=== PATIENT | female | born 1960 | race Caucasian/White ===

== ENCOUNTER 2016-05-11 20:01 | Emergency (ER) | payer OTHER ==
[~2016-05-11] VITALS: Ht 162.6 cm; Wt 77.0 kg
[~2016-05-11 20:01] MED LIST: ASPI81 PO; GEMF600T PO; IMDU30TA PO; LIPI80TA16 PO; METO50TA PO; NIAC500T5 PO; TICA90 PO
[2016-05-11 20:04] VITALS: BP 161/100; PULSE 97; RESP 15; TEMP 98; O2SAT 97
[2016-05-11 22:54] VITALS: BP 186/103; PULSE 84; RESP 16; O2SAT 98
[2016-05-11] MEDS ORDERED: GEMF600T PO (22:57)
[2016-05-11] MEDS ORDERED: AMLO5TAB2 PO (22:57)
[2016-05-11] MEDS ORDERED: CLOP75TA PO (22:57)
[2016-05-11] MEDS ORDERED: LOSA50TA PO (22:57)
[2016-05-11] MEDS ORDERED: ISOS30TA3 PO (22:57)
[2016-05-11] MEDS ORDERED: ATOR1TAB18 PO (22:57)
[2016-05-11] MEDS ORDERED: ASPI81CH37 CHEW (22:57)
[2016-05-11] MEDS ORDERED: SODIUM CHLORID 0.9% 500 ML INJ 500 ML IV ONE (23:15)
[2016-05-11] MEDS ORDERED: PANTOPRAZOLE INJ 80 MG in SODIUM CHLORIDE 0.9% INJ 35 ML IV ONE (23:15)
[2016-05-11] MEDS ORDERED: PANTOPRAZOLE INJ 80 MG in SODIUM CHLORIDE 0.9% INJ 100 ML IV SCH (23:15)
[2016-05-11] MEDS ORDERED: SODIUM CHLORIDE 0.9% FLUSH 5 ML FLUSH IVF PRN (23:15)
[2016-05-11] MEDS ORDERED: ONDANSETRON HCL 4 MG/2 ML VIAL IVP ONE (23:15)
[2016-05-11] MEDS ORDERED: MORPHINE SULFATE 4 MG/ML INJ IV PUSH ONE (23:15)
[2016-05-12 00:57] LABS: AUTOMATED NEUTROPHIL # 6.1 TH/MM3 (1.8-7.7); BASOPHIL % 0.5 % (0.0-2.0); EOSINOPHIL # 0.1 TH/MM3 (0-0.4); EOSINOPHIL % 1.5 % (0.0-4.0); HEMATOCRIT 41.2 % (35.0-46.0); HEMO FLAGS DIFF FINAL; LYMPH % 21.6 % (9.0-44.0); LYMPHOCYTE # 1.9 TH/MM3 (1.0-4.8); MEAN CELL VOLUME 89.3 FL (80.0-100.0); MEAN CORPUSCULAR HEMOGLOBIN 31.8 PG (27.0-34.0); MEAN CORPUSCULAR HGB CONC 35.6 % (32.0-36.0); MONO % 6.6 % (0.0-8.0); NEUT % 69.8 % (16.0-70.0); PLATELET COUNT 283 TH/MM3 (150-450); RED BLOOD COUNT 4.61 MIL/MM3 (4.00-5.30); RED CELL DISTRIBUTION WIDTH 13.1 % (11.6-17.2); WHITE BLOOD COUNT 8.7 TH/MM3 (4.0-11.0)
[2016-05-12 01:11] LABS: APTT (PATIENT) 28.2 SEC (24.3-30.1); INTERNATIONAL NORMALIZED RATIO 0.9 RATIO; PROTHROMBIN TIME - PATIENT 10.4 SEC (9.8-11.6)
[2016-05-12 01:21] LABS: ALKALINE PHOSPHATASE 98 U/L (45-117); ALT (GPT) 19 U/L (10-53)
[2016-05-12 01:36] LABS: ANION GAP 10 MEQ/L (5-15); AST (GOT) 15 U/L (15-37); BLOOD UREA NITROGEN 10 MG/DL (7-18); CHLORIDE 107 MEQ/L (98-107); GLOMERULAR FILTRATION RATE 94 ML/MIN (>89); POTASSIUM 3.8 MEQ/L (3.5-5.1); SODIUM (NA) 141 MEQ/L (136-145)
[2016-05-12] MEDS ORDERED: IOHEXOL 350 MG/ML 10 ML VIAL (for RAD DIAG) IV ONE (01:53)
--- NOTE | 2016-05-12 02:22 | RADRPT ---
EXAM DATE/TIME: 05/12/2016 01:51 [place] COMPARISON: No previous studies available for comparison. INDICATIONS : Abdominal pain and blood in stool since this morning. IV CONTRAST: 70 cc Omnipaque 350 (iohexol) IV ORAL CONTRAST: No oral contrast ingested. RADIATION DOSE: 11.23 CTDIvol (mGy) MEDICAL HISTORY : Cardiovascular disease. Hypertension. SURGICAL HISTORY : CABG section.Coronary artery stent.Laminectomy. ENCOUNTER: Initial ACUITY: 1 day PAIN SCALE: 4/10 LOCATION: Diffuse abdomen TECHNIQUE: Volumetric scanning of the abdomen and pelvis was performed. Using automated exposure control and ad justment of the mA and/or kV according to patient size, radiation dose was kept as low as reasonably achievable to obtain optimal diagnostic quality images. FINDINGS: There is mural thickening of the transverse colon and extending slightly into the left colon characte ristic of a mild colitis. No abscess, obstruction, free fluid or free air. There is colonic diverticu losis without evidence for diverticulitis. Lung bases clear. Previous median sternotomy. No significant abnormality in the liver, spleen, adrena ls, kidneys or pancreas. CONCLUSION: 1. Mild colitis predominantly involving the transverse colon without obstruction, abscess or free flu id. No free air. Gilberto Schafer MD on May 12, 2016 at 2:18 Board Certified Radiologist. This report was verified electronically.
[2016-05-12] MEDS ORDERED: CIPROFLOXACIN 400 MG PREMIX 200 ML IV ONE (03:00)
[2016-05-12] MEDS ORDERED: metroNIDAZOLE 500 MG INJ 100 ML IV ONE (03:00)
[2016-05-12 03:43] VITALS: RESP 16; O2SAT 98
[2016-05-12 04:55] LABS: BASOPHIL % 0.5 % (0.0-2.0); EOSINOPHIL # 0.2 TH/MM3 (0-0.4); EOSINOPHIL % 2.3 % (0.0-4.0); HEMATOCRIT 39.7 % (35.0-46.0); HEMO FLAGS DIFF FINAL; LYMPH % 24.7 % (9.0-44.0); LYMPHOCYTE # 1.8 TH/MM3 (1.0-4.8); MEAN CELL VOLUME 89.5 FL (80.0-100.0); MEAN CORPUSCULAR HEMOGLOBIN 32.2 PG (27.0-34.0); MEAN CORPUSCULAR HGB CONC 35.9 % (32.0-36.0); MONO % 6.1 % (0.0-8.0); NEUT % 66.4 % (16.0-70.0); PLATELET COUNT 255 TH/MM3 (150-450); RED BLOOD COUNT 4.43 MIL/MM3 (4.00-5.30); RED CELL DISTRIBUTION WIDTH 12.7 % (11.6-17.2); WHITE BLOOD COUNT 7.5 TH/MM3 (4.0-11.0)
--- NOTE | 2016-05-12 05:29 | PD ---
HPI Chief Complaint: GI Complaint Time Seen by Provider: 22:49 Travel History International Travel<30 days: No Contact w/Intl Traveler<30days: No Traveled to known affect area: No History of Present Illness HPI Patient is a 56-year-old female comes in complaining of bloody diarrhea. She says she started having diarrhea today and the past few episodes she noticed were full of blood. She says she has some cramping abdominal pain. She denies nausea or vomiting. She denies fever or chills. She has not been on antibiotics recently. She says this has never happened before. PFSH Past Medical History Arthritis: No Autoimmune Disease: No Blood Disorders: No Anxiety: Yes Depression: Yes Heart Rhythm Problems: No Cancer: No Cardiac Catheterization: Yes Cardiovascular Problems: Yes (OPEN HEART, STENTS, HTN) High Cholesterol: Yes Chemotherapy: No Chest Pain: Yes Congestive Heart Failure: No Cerebrovascular Accident: No Coronary Artery Disease: Yes Diabetes: No Diminished Hearing: No Endocrine: No Gastrointestinal Disorders: No Glaucoma: No Genitourinary: No Headaches: No Hepatitis: No Hypertension: Yes Immune Disorder: No Implanted Vascular Access Dvce: Yes Musculoskeletal: Yes Neurologic: No Psychiatric: Yes Reproductive: No Respiratory: No Integumentary: No Myocardial Infarction: No Radiation Therapy: No Seizures: No Thyroid Disease: No Tetanus Vaccination: Unknown Influenza Vaccination: Yes ?: Not Menopausal: Yes Past Surgical History Abdominal Surgery: No AICD: No Body Medical Devices: stent august 2012 Cardiac Surgery: No Coronary Artery Bypass Graft: Yes Ear Surgery: No Endocrine Surgery: No Eye Surgery: No Genitourinary Surgery: No Gynecologic Surgery: Yes (C SECTION) Joint Replacement: No Oral Surgery: No Pacemaker: No Thoracic Surgery: Yes (CABG 2005,stent 08/2012) Other Surgery: Yes (BACK/) Family History Family Myocardial Infarction: Yes (BROTHER X2 AT AGE 43) Social History Alcohol Use: Yes (3 drinks/wk) Tobacco Use: Yes (occ) Substance Use: No Allergies-Medications (Allergen,Severity, Reaction): Coded Allergies: No Known Allergies (Verified , 05/11/16) Reported Meds & Prescriptions Reported Meds & Active Scripts Active Reported Aspirin Low Dose (Aspirin) 81 Mg Chew 81 Mg CHEW DAILY Atorvastatin (Atorvastatin Calcium) 80 Mg Tab 80 Mg PO HS Losartan (Losartan Potassium) 50 Mg Tab 50 Mg PO DAILY Amlodipine (Amlodipine Besylate) 5 Mg Tab 5 Mg PO DAILY Isosorbide Mononitrate ER (Isosorbide Mononitrate) 30 Mg Igor 30 Mg PO DAILY Clopidogrel (Clopidogrel Bisulfate) 75 Mg Tab 75 Mg PO DAILY Gemfibrozil 600 Mg Tab 600 Mg PO BIDAC Take 30 minutes prior to breakfast and dinner. Review of Systems Except as stated in HPI: all other systems reviewed are Neg General / Constitutional: No: Fever, Chills HENT: No: Headaches, Lightheadedness Cardiovascular: No: Chest Pain or Discomfort, Palpitations Respiratory: No: Shortness of Breath Gastrointestinal: Positive: Diarrhea, Abdominal Pain, Hematochezia, No: Nausea , Vomiting Genitourinary: No: Dysuria Skin: No Rash, No Change in Pigmentation Neurologic: No: Weakness, Dizziness Physical Exam Narrative GENERAL: Awake and alert, in no acute distress. SKIN: Warm and dry. HEAD: Atraumatic. Normocephalic. EYES: Pupils equal and round. No scleral icterus. No conjunctival pallor. ENT: Mucous membranes pink and moist. NECK: Trachea midline. No JVD. CARDIOVASCULAR: Regular rate and rhythm. No murmur appreciated. RESPIRATORY: No accessory muscle use. Clear to auscultation. Breath sounds equal bilaterally. GASTROINTESTINAL: Abdomen soft, non-tender, nondistended. RECTAL: No pain or masses, BRBPR MUSCULOSKELETAL: No obvious deformities. No clubbing. No cyanosis. No edema. NEUROLOGICAL: Awake and alert. No obvious cranial nerve deficits. Motor grossly within normal limits. Normal speech. PSYCHIATRIC: Appropriate mood and affect; insight and judgment normal. Data Data Last Documented VS Vital Signs Date Time Temp Pulse Resp B/P Pulse Ox O2 Delivery O2 Flow Rate FiO2 05/12/16 03:43 16 98 Room Air 05/11/16 22:54 84 186/103 05/11/16 20:04 98.0 Orders Complete Blood Count With Diff (05/11/16 23:10) Comprehensive Metabolic Panel (05/11/16 23:10) Lipase (05/11/16 23:10) Prothrombin Time / Inr (Pt) (05/11/16 23:10) Act Partial Throm Time (Ptt) (05/11/16 23:10) Urinalysis - C+S If Indicated (05/11/16 23:10) Ua Includes Microscopic (05/11/16 23:10) Iv Access Insert/Monitor (05/11/16 23:10) Ecg Monitoring (05/11/16 23:10) Oximetry (05/11/16 23:10) Morphine Inj (Morphine Inj) (05/11/16 23:15) Ondansetron Inj (Zofran Inj) (05/11/16 23:15) Sodium Chloride 0.9% Flush (Ns Flush) (05/11/16 23:15) Pantoprazole Inj (Protonix Inj) (05/11/16 23:15) Pantoprazole Inj (Protonix Inj) (05/11/16 23:15) Sodium Chlorid 0.9% 500 Ml Inj (Ns 500 M (05/11/16 23:15) Type And Screen (05/11/16 23:10) Ct Abd/Pel W Iv Contrast(Rout) (05/12/16 ) Iohexol 350 Inj (Omnipaque 350 Inj) (05/12/16 01:53) Metronidazole 500 Mg Inj (Flagyl 500 Mg (05/12/16 03:00) Ciprofloxacin 400 Mg Premix (Cipro 400 M (05/12/16 03:00) Complete Blood Count With Diff (05/12/16 04:36) Labs Laboratory Tests Test 05/12/16 05/12/16 00:45 04:45 White Blood Count 8.7 TH/MM3 7.5 TH/MM3 Red Blood Count 4.61 MIL/MM3 4.43 MIL/MM3 Hemoglobin 14.7 GM/DL 14.3 GM/DL Hematocrit 41.2 % 39.7 % Mean Corpuscular Volume 89.3 FL 89.5 FL Mean Corpuscular Hemoglobin 31.8 PG 32.2 PG Mean Corpuscular Hemoglobin 35.6 % 35.9 % Concent Red Cell Distribution Width 13.1 % 12.7 % Platelet Count 283 TH/MM3 255 TH/MM3 Mean Platelet Volume 7.0 FL 6.9 FL Neutrophils (%) (Auto) 69.8 % 66.4 % Lymphocytes (%) (Auto) 21.6 % 24.7 % Monocytes (%) (Auto) 6.6 % 6.1 % Eosinophils (%) (Auto) 1.5 % 2.3 % Basophils (%) (Auto) 0.5 % 0.5 % Neutrophils # (Auto) 6.1 TH/MM3 5.0 TH/MM3 Lymphocytes # (Auto) 1.9 TH/MM3 1.8 TH/MM3 Monocytes # (Auto) 0.6 TH/MM3 0.5 TH/MM3 Eosinophils # (Auto) 0.1 TH/MM3 0.2 TH/MM3 Basophils # (Auto) 0.0 TH/MM3 0.0 TH/MM3 CBC Comment DIFF FINAL DIFF FINAL Differential Comment Prothrombin Time 10.4 SEC Prothromb Time International 0.9 RATIO Ratio Activated Partial 28.2 SEC Thromboplast Time Sodium Level 141 MEQ/L Potassium Level 3.8 MEQ/L Chloride Level 107 MEQ/L Carbon Dioxide Level 24.0 MEQ/L Anion Gap 10 MEQ/L Blood Urea Nitrogen 10 MG/DL Creatinine 0.65 MG/DL Estimat Glomerular Filtration 94 ML/MIN Rate Random Glucose 98 MG/DL Calcium Level 9.1 MG/DL Total Bilirubin 1.0 MG/DL Aspartate Amino Transf 15 U/L (AST/SGOT) Alanine Aminotransferase 19 U/L (ALT/SGPT) Alkaline Phosphatase 98 U/L Total Protein 7.1 GM/DL Albumin 3.8 GM/DL Lipase 172 U/L Blood Type O POSITIVE Antibody Screen NEGATIVE Blood Bank Comment MDM Medical Decision Making Medical Screen Exam Complete: Yes Emergency Medical Condition: Yes Medical Record Reviewed: Yes Differential Diagnosis Colitis vs diverticulosis vs diverticulitis vs ulcer Narrative Course Patient is a 56-year-old female comes in complaining of blood in her stool. Exam shows mild diffuse tenderness to palpation. Stools positive for blood. IV established, labs sent. Patient given Protonix. Labs show hemoglobin of 14.7. All other labs within normal limits. CT abdomen and pelvis shows diverticulosis as well as colitis. Patient had no further episodes of diarrhea while in the emergency department. Repeat CBC shows hemoglobin of 14.3. Patient given Cipro and Flagyl to treat colitis. Patient advised of the results. Advised she needs to follow-up with gastroenterology to have a colonoscopy done. Advised to return to the ED as needed for any worsening symptoms. Advised to return if bleeding worsens or returns. Patient is comfortable with discharge at this time. Diagnosis Primary Impression: Colitis Patient Instructions: Colitis (ED), General Instructions Additional Instructions: Take all of your antibiotics. Make sure you do not drink alcohol while taking the antibiotics because you will become violently ill. Follow up with gastroenterology for colonoscopy. Return to the ED for any worsening symptoms. Scripts Metronidazole (Flagyl)500 Mg [id number] Mg PO TID 7 Days Ref 0 Prov:Yuliana Rosenberg MD 05/12/16 Ciprofloxacin (Cipro)500 Mg [id number] Mg PO BID 7 Days Ref 0 Prov:Yuliana Rosenberg MD 05/12/16 Disposition: 01 DISCHARGE HOME Condition: Stable Yuliana Rosenberg MD May 12, 2016 05:29
[2016-05-12] MEDS ORDERED: CIPR-9 PO (05:51)
[2016-05-12] MEDS ORDERED: METR-1 PO (05:51)
== END 2016-05-12 06:40 | disposition home or self-care (01) ==
LOC: NEPE 20:01
DX: K52.9 Noninfective gastroenteritis and colitis, unspecified (principal); R19.7 Diarrhea, unspecified; R10.9 Unspecified abdominal pain; I10 Essential (primary) hypertension; E78.00 Pure hypercholesterolemia, unspecified
CPT/HCPCS: 74177; 80053; 83690; 85025; 85610; 85730; 86850; 86900; 86901; 96365; 96375; 99285; C9113; J0744; J2270; J2405; J7040; Q9967